=== PATIENT | female | born 1940 | race Hispanic/Latino ===

== ENCOUNTER 2020-11-11 19:43 | Emergency (ER) | payer OTHER ==
--- OUTSIDE RECORDS SUMMARY | 2020-11-11 19:46 | XMS REPORT | Summary of Care ---
:1940 Author Organization [facility] [place] [id number] Care Team Providers Name Role Phone Christiana Dominguez DO Primary Care Provider Reason for Referral Radiology Services (Routine) Status Reason Specialty Diagnoses / Referred By Contact Refe rred To Contact Procedures Pending Radiology Diagnoses Renal mass Ashok Bell MD Ct Imaging Procedures CT ABDOMEN PELVIS W WO CONTRAST [address] [place] [address] [address] [place] [phone] Phone: Fax: Radiology Services (Routine) Status Reason Specialty Diagnoses / Procedures Referred By C anthony Referred To Contact Pending Radiology Diagnoses Renal mass Arminda Miller MD Ct Imaging Procedures CT ABDOMEN PELVIS W WO CONTRAST [address] [address] Phone: Fax: Consult, Test & Treat (Routine) Status Reason Specialty Diagnoses / Referred By Referred To Procedures Contact Contact Pending Consult, Test, Urology Diagnoses Renal mass Arminda Miller MD Mayer, Wesley and Treat Procedures RI OFFICE OUTPATIENT NEW 30 MINUTES MD Pedro [address] [place] [address] Reason for Visit Reason Comments Renal Mass Consult, Test & Treat (Routine) Status Reason Specialty Diagnoses / Referred By Referred To Procedures Contact Contact Patient Responsible Urology Diagnoses black spot on kidney AgliShawn burgess Seth P, Procedures UROLOGY NEW OFFICE VISIT Hue [address] [facility], 10TH [place] [address] B Phone: [place], [place] [phone] Fax: Encounter Details Date Type Department Care Team Description 10/01/2020 [facility] Urology [address] [facility] [address] [place] [address] [address], [place] [address] [place] [address] [phone] Allergies No Known Active Allergiesdocumented as of this encounter (statuses as of 10/01/2020) Medications Medication Sig Dispensed Refills Start Date End Date Status levothyroxine Take 75 mcg 0 06/28/2015 Act adelina (SYNTHROID) 75 MCG by mouth tablet daily. metoprolol Take 50 mg 1 11/03/2018 Active (LOPRESSOR) 50 MG by mouth tablet two times daily. pravastatin Take 40 mg 0 07/26/2018 Active (PRAVACHOL) 40 MG by mouth tablet daily. acetaminophen Take 650 mg 0 Acti ve (TYLENOL 8 HOUR by mouth ARTHRITIS PAIN) 650 every 6 MG CR tablet hours as needed for Pain. Cholecalciferol Take 2,000 0 Act adelina (VITAMIN D3) 2000 Units by units TABS mouth daily. pantoprazole Take 40 mg 0 Active (PROTONIX) 20 MG by mouth. tablet cetirizine,ZYRTEC, 1 tablet 0 A ctive (ZYRTEC ALLERGY) 10 MG tablet amlodipine (NORVASC) 1 tablet 0 10/13/2019 Active 5 MG tablet Aspirin (ASPIRIN 81) 1 tablet 0 Active 81 MG tablet lisinopril 1 tablet 0 07/18/2019 Active (PRINIVIL, ZESTRIL) 40 MG tablet lisinopril Take 40 mg 0 07/25/2018 Discont inued (PRINIVIL, ZESTRIL) by mouth 0 (*Duplicate 40 MG tablet daily. medicat ion) amlodipine (NORVASC) Take 5 mg 0 07/25/2018 10/01/20 2 Discontinued 5 MG tablet by mouth 0 (*Duplic ate daily. medication ) aspirin 81 MG tablet Take 81 mg 0 10/01/20 2 Discontinued by mouth 0 (*Duplicat e daily. medication ) levothyroxine 1 EACH ONCE 0 Disc ontinued (SYNTHROID) 75 MCG A DAY 0 ( *Duplicate tablet ORALLY medication ) pravastatin 1 tablet 0 12/16/2019 Discont inued (PRAVACHOL) 40 MG 0 (* Duplicate tablet medication ) metoprolol 1 tablet 0 08/01/2019 Disconti nued (LOPRESSOR) 50 MG with food 0 (* Duplicate tablet medication ) Cholecalciferol Take by 0 Disc ontinued (VITAMIN D3) 1.25 MG mouth. 0 (*Duplicate (57243 UT) CAPS medi cation) documented as of this encounter (statuses as of 10/01/2020) Active Problems Problem Noted Date Renal mass 10/01/2020 documented as of this encounter (statuses as of 10/01/2020) Social History Tobacco Use Types Packs/Day Years Used Date Never Smoker Smokeless Tobacco: Never Used Alcohol Use Drinks/Week oz/Week Comments No Alcohol Habits Answer Date Recorded How often do you have a drink containing alcohol? Never 12/23/2018 How many drinks containing alcohol do you have on a typical Not asked day when you are drinking? How often do you have six or more drinks on one occasion? No t asked Sex Assigned at Date Recorded Not on file documented as of this encounter Last Filed Vital Signs Vital Sign Reading Time Taken Comments Blood Pressure 159/71 10/01/2020 1:10 PM PATIENT INTAKE REPRESENTATIVE Pulse 82 10/01/2020 1:10 PM PATIENT INTAKE REPRESENTATIVE Temperature - - Respiratory Rate - - Oxygen Saturation - - Inhaled Oxygen Concentration - - Weight 73.9 kg (163 lb) 10/01/2020 1:10 PM PATIENT INTAKE REPRESENTATIVE Height 149.9 cm (4' 11") 10/01/2020 1:10 PM PATIENT INTAKE REPRESENTATIVE Body Mass Index 32.92 10/01/2020 1:10 PM PATIENT INTAKE REPRESENTATIVE documented in this encounter Patient Instructions Patient InstructionsArminda Miller MD - 10/01/2020 1:00 PM CSTPlease get a repeat CT scan in January 2021 and follow up with Dr. Chin Mack for result review. ENT INTAKE REPRESENTATIVE documented in this encounter Progress Notes Joshua Guillory - 10/01/2020 1:16 PM PATIENT INTAKE REPRESENTATIVE HPI Review of Systems Constitutional: Negative. HENT: Negative. Eyes: Negative. Respiratory: Negative. Cardiovascular: Negative. Gastrointestinal: Positive for abdominal pain. Endocrine: Negative. Genitourinary: Negative. Musculoskeletal: Negative. Skin: Negative. Allergic/Immunologic: Negative. Neurological: Negative. Hematological: Negative. Psychiatric/Behavioral: Negative. Physical Exam shok Bell MD - 10/01/2020 1:00 PM CSTThe patient was seen, examined and history reviewed together with the urology resident Dr. Miller. Please refer to his note for additional details which I have reviewed and concur. Additional findings: reviewed CT and has two SRM that do not meet size criteria for intervention Impression: SRM needs active surveillance Discussion with patient/family: d/w pt and daughter Plan: Active surveillance. Refer to Dr. Mack with follow appt January 2021 ([address]) Pre-clinic CT renal protocol Arminda Hinds MD - 10/01/2020 1:00 PM CST Referring Physician Self Referral No address on file Patient Name: Kandace Whitt :1940 [facility] ID#:[id number] Ms. Whitt is a 80 y.o. year old female with pmh of nephrolithiasis, CAD s/p stent, HTN, hypothyrodism, OA who presents for evaluation of renal masses. Patient reports that she has had renal cysts for several years but was recently diagnosed with a renal mass. She reports that her finish inspector referred her to urology for growth of mass. She reports right upper quadrant pain over the last 2-3 years. Worse after activity. Denies history of gross hematuria, weight loss, bone pain. Never smoker. Denies occupational exposures. Worked as a nanny, now retired. Family history of brother with prostate cancer and sister with colon cancer. She has had a history of colon polyps but 2014 polyp was benign. 08/19/20, 01/10/18, 02/12/2016 CT abd/pelvis scans reviewed. There is a small 7mm enhancing right upper pole renal mass since 2016 that has been stable. 2018 scan with a new left anterior/ lateral 10.7mmenhancing renal mass. Increased to 18mm in 2020. There is also a very small subcm left upper pole mass with possible enhancement. She does not have any left sided symptoms. Past Medical History: Diagnosis Date Calculus of kidney Coronary atherosclerosis of unspecified type of vessel, ekw[place] or graft Cystic kidney disease Essential hypertension Heart disease Hypothyroidism Osteoarthrosis, unspecified whether generalized or localized, involving unspecified site Past Surgical History: Procedure Laterality Date ABDOMINAL SURGERY COLON BIOPSY CORONARY STENT PLACEMENT EXTERNAL EAR SURGERY EYE SURGERY HEMORRHOID SURGERY HERNIA REPAIR SHOULDER SURGERY TUMOR REMOVAL Medications Outpatient Medications Prior to Visit Medication Sig Dispense Refill acetaminophen Take 650 mg by mouth every 6 hours as needed for Pain. amlodipine 1 tablet [DISCONTINUED] amlodipine Take 5 mg by mouth daily. Aspirin 1 tablet [DISCONTINUED] aspirin Take 81 mg by mouth daily. cetirizine(ZYRTEC) 1 tablet [DISCONTINUED] Vitamin D3 Take by mouth. Vitamin D3 Take 2,000 Units by mouth daily. [DISCONTINUED] levothyroxine 1 EACH ONCE A DAY ORALLY levothyroxine Take 75 mcg by mouth daily. lisinopril 1 tablet [DISCONTINUED] lisinopril Take 40 mg by mouth daily. [DISCONTINUED] metoprolol 1 tablet with food metoprolol Take 50 mg by mouth two times daily. 1 pantoprazole Take 40 mg by mouth. [DISCONTINUED] pravastatin 1 tablet pravastatin Take 40 mg by mouth daily. No facility-administered medications prior to visit. Current Outpatient Medications: acetaminophen (TYLENOL 8 HOUR ARTHRITIS PAIN) 650 MG CR tablet, Take 650 mg by mouth every 6 hours as needed for Pain., Disp: , Rfl: amlodipine (NORVASC) 5 MG tablet, 1 tablet, Disp: , Rfl: Aspirin (ASPIRIN 81) 81 MG tablet, 1 tablet, Disp: , Rfl: cetirizine,ZYRTEC, (ZYRTEC ALLERGY) 10 MG tablet, 1 tablet, Disp: , Rfl: Cholecalciferol (VITAMIN D3) 2000 units TABS, Take 2,000 Units by mouth daily., Disp: , Rfl: levothyroxine (SYNTHROID) 75 MCG tablet, Take 75 mcg by mouth daily., Disp: , Rfl: lisinopril (PRINIVIL, ZESTRIL) 40 MG tablet, 1 tablet, Disp: , Rfl: metoprolol (LOPRESSOR) 50 MG tablet, Take 50 mg by mouth two times daily., Disp: , Rfl: 1 pantoprazole (PROTONIX) 20 MG tablet, Take 40 mg by mouth., Disp: , Rfl: pravastatin (PRAVACHOL) 40 MG tablet, Take 40 mg by mouth daily., Disp: , Rfl: Social History Socioeconomic History Marital status: Spouse name: Not on file Number of children: Not on file Years of education: Not on file Highest education level: Not on file Occupational History Not on file Tobacco Use Smoking status: Never Smoker Smokeless tobacco: Never Used Substance and Sexual Activity Alcohol use: No Drug use: Not on file Sexual activity: Not on file Other Topics Concerns: Not on file Social History Narrative Not on file Social Determinants of Health Financial Resource Strain: Difficulty of Paying Living Expenses: Not on file Food Insecurity: Worried About Running Out of Food in the Last Year: Not on file Ran Out of Food in the Last Year: Not on file Transportation Needs: Lack of Transportation (Medical): Not on file Lack of Transportation (Non-Medical): Not on file Physical Activity: Days of Exercise per Week: Not on file Minutes of Exercise per Session: Not on file Stress: Feeling of Stress : Not on file Social Connections: Frequency of Communication with Friends and Family: Not on file Frequency of Social Gatherings with Friends and Family: Not on file Attends Anabaptism Services: Not on file Active Member of Clubs or Organizations: Not on file Attends Club or Organization Meetings: Not on file Marital Status: Not on file Intimate Partner Violence: Fear of Current or Ex-Partner: Not on file Emotionally Abused: Not on file Physically Abused: Not on file Sexually Abused: Not on file family history is not on file. No Known Allergies Review of Systems: Review of Systems reviewed with patient as noted in nurse's note. Physical Exam: GENERAL: Well developed, well nourished, in no acute distress HEAD: Normocephalic and atraumatic CHEST Regular respiratory rate CV Regular rate and rhythm ABDOMEN: Soft without masses, Mild RUQ tenderness to palpation BACK: No CVAT EXTREMITIES: No clubbing, cyanosis, edema, or deformity SKIN: Intact without lesions or rashes NEURO: BUENROSTRO well. Patient alert and oriented x3. PSYCH: Alert and cooperative; normal mood and affect; normal attention span and concentration Most Recent Labs: No results found for this or any previous visit (from the past 4032 hour(s)). Most Recent Imaging: No images are attached to the encounter. Assessment: Small renal masses. 1.8cm Left and 7mm right. Plan: Discussed possible benign vs malignant etiology of the tumors. However masses are still quite small and growth rate relatively slow. Recommend continued active surveillance for now. Goal is to avoid any unnecessary treatments with risk of complications. Will refer to Dr. Mack with repeat CT abdomen w/wo contrast in 6 months. Patient and daughter are in agreement with this plan. documented in this encounter Plan of Treatment Date Type Specialty Care Team Description 04/03/2021 Office Visit Urology Chin Mack am, MD [address] [facility] [address] [place], [place] [address] [phone] Name Type Priority Associated Diagnoses Order S chedule CT ABDOMEN PELVIS W WO Imaging Routine Renal mass Expec warner: 02/12/2021, CONTRAST Expires: 2020 CT ABDOMEN PELVIS W WO Imaging Routine Renal mass Expec warner: 04/01/2021, CONTRAST Expires: 2020 Name Type Priority Associated Diagnoses Order S chedule AMB REF TO UROLOGY Outpatient Referral Routine Renal mass Or dered: [facility] 10/01/2020 Health Maintenance Due Date Last Done Comments BMI FOLLOW UP PLAN 1957 ZOSTER VACCINE (1 of 2) 1989 FALL SCREEN 2004 OSTEOPOROSIS SCREENING 2004 PNEUMOVAX >=65 (PPSV23) 2004 MEDICARE AWV (Initial) 11/01/2018 FLU VACCINE > 6 MONTHS 06/01/2020 TETANUS SHOT (ADULT) 03/28/2023 03/28/2013 HPV VACCINE Aged Out No longer eligib le based on patient's age to complete this topic documented as of this encounter Results Not on filedocumented in this encounter Visit Diagnoses Diagnosis Renal mass - Primary Unspecified disorder of kidney and urete r Renal cyst Unspecified congenital cystic kidney dis ease documented in this encounter Insurance Payer Benefit Plan / Subscriber ID Effective Phone Address T ype Group Dates RENAISSANCE IPA [facility] [id number] 2018-Edie [employer]MA[employer] HMO - RNPO PCP nt [id number] [place] [address] documented as of this encounter
--- OUTSIDE RECORDS SUMMARY | 2020-11-11 19:46 | XMS REPORT | Continuity of Care Document ---
:1940 Author Organization [facility] t Address [address] [place] [address] Care Team Providers Name Role Phone Arabella JAEGER P Attending Clinician Macie Palacios Attending Clinician Tico JAEGER Attending Clinician Problems This patient has no known problems. Allergies, Adverse Reactions, Alerts Allergy Allergy Status Severity Reaction(s) Onset Inactive Treating Comm ents Source Name Type Date Date Clinician vioxx Adverse [facility] tachy [facility] ANGIOTEN Adverse Active Info Not [facility] Available [facility] Cephalex Adverse Active Info Not [facility] Reaction Available [facility] Cipro Adverse Active Info Not [facility] Reaction Available [facility] Medications Ordered Filled Start Stop Current Ordering Indication Dosage Frequency Signature Comments Components Source Medication Medication Date Date Medication? Clinician (SIG) Name Name PredniSONE PredniSONE 2020-0 2020- No Na Dominguez [address] [facility] 8 08-17 [facility] Pantoprazol Pantoprazol 2019-0 Yes Na Dominguez [address] [facility] Sodium e Sodium - [facility] 00 [facility] Cetirizine Cetirizine 2020-0 2020- No Na Dominguez [address] [facility] HCl HCl 11-10 [facility] Amlodipine Amlodipine Yes Na Odminguez [address] [facility] Besylate Besylate [facility] Metoprolol Metoprolol Yes Na Dominguez [address] [facility] Tartrate Tartrate with food Livier kes - [facility] Furosemide Furosemide Yes Na Dominguez [address] [facility] Aspir-81 Aspir-81 Yes Na Dominguez [address] [facility] Augmentin Augmentin Yes Na Dominguez [address] [facility] Flonase Flonase Yes Na Dominguez [address] in each [facility] Synthroid Synthroid Yes Na Dominguez [address] [facility] ONCE A DAY [facility] Pravastatin Pravastatin Yes Na Dominguez [address] [facility] [address] Sodium Sodium [facility] Synthroid Synthroid Yes Na Dominguez [address] [facility] on an [facility] empty [facility] stomach in l [facility] Lisinopril Lisinopril Yes Na Dominguez [address] [facility] Colcrys Colcrys Yes Na Dominguez [address] [facility] Neurontin Neurontin Yes Na Dominguez [address] [facility] Yes Na Dominguez [address] [facility] Allergy Allergy [facility] Omeprazole Omeprazole Yes Na Dominguez [address] ONCE A DAY [facility] 90 Memoria DAYS l [facility] Lisinopril Lisinopril Yes Na Dominguez [address] [facility] Immunizations Ordered Filled Immunization Date Status Comments [facility] e Immunization Name Name FluAD FluAD 2019-08-[address] [facility]00 [facility] FluAD FluAD 2018-08-[address] [facility] Procedures This patient has no known procedures. Encounters Start End Encounter Admission Attending Care Care Encounter Source Date/Time Date/Time Type Type Clinicians Facility Department ID 2020-11-06 2020-11-06 Outpatient [facility] [id number] [facility] 2020-10-23 2020-10-[address] [id number] 2020-10-23 2020-10-[address] [facility] [id number] 2020-10-01 2020-10-01 Office ArabellaJOSE graf [id number] 12:05:53 14:25:00 Visit Ashok Horacio AMBULATOR [id number] 2020-09-25 2020-09-25 [facility] [id number] 2020-08-16 2020-08-[facility] [id number] [facility] 2020-08-08 2020-08-[address] [facility] [id number] 2020-08-08 2020-08-08 [id number] 2020-06-07 2020-06-07 [facility] [id number] [address] 11:40:00 11:40:00 t dooub [facility] Family Medicine l Medicine Outpati ent Clinics 2020-06-06 2020-06-06 [facility] [id number] 11:56:00 11:56:[address] [place] [address] [facility] 2020-04-26 2020-04-26 [facility] [id number] 13:40:00 13:40:[address] [facility] 2020-04-20 2020-04-20 Emergency Gabe Zaragoza [facility] [id number] 20:23:10 21:20:00 Macie Perdomo [id number] [place] [id number] [place] [id number] 2020-03-19 2020-03-19 [facility] [id number] 14:20:00 14:20:00 [facility] 2020-03-12 2020-03-12 [facility] [id number] 10:08:00 10:08:[address] [facility] 2019-12-22 2019-12-22 [facility] [id number] 13[facility]38:00 13:38:[address] [facility] 2019-12-19 2019-12-19 [facility] [id number] 00:00:00 00:00:00 Scot Perdomo [id number] [place] [id number] [facility] [id number] [address] 2019-12-11 2019-12-11 [facility] [id number] 00:00:00 00:00:00 Scot Perdomo [id number] [place] [id number] [facility] [id number] [address] 2019-11-10 2019-11-10 [facility] [id number] 11:00:00 11:00:[address] [facility] 2019-11-02 2019-11-02 [facility] [id number] 16:27:00 16:27:00 [place] s - Drive [facility] Family Medicine Medicine Outpati ent Clinics 2019-10-31 2019-10-31 [facility] [id number] 12:07:00 12:07:00 [place] [facility] Medicine Outpati ent Clinics 2019-08-10 2019-08-10 [facility] [id number] 08:40:00 08:40:00 [place] [employer] [facility] - Drive [facility] Medicine Medicine Outpati ent Clinics 2019-08-04 2019-08-04 [facility] [id number] 16:17:00 16:17:00 [place] [employer] [facility] [place] [facility] Medicine Outpati ent Clinics 2019-07-18 2019-07-18 [facility] [id number] 00:00:00 00:00:00 Critical access hospital [id number] [place] [id number] [place] [address] [id number] Primary & 059 Specialty Care 2019-06-16 2019-06-16 [facility] [id number] 14:40:00 14:40:00 [place] [employer] [facility] [place] [facility] Medicine Outpati ent Clinics 2018-11-23 2018-11-23 [facility] [id number] 10:30:00 10:30:00 [place] [employer] [facility] [place] [facility] Medicine Medicine Outpati ent Clinics 2018-11-11 2018-11-11 [facility] [id number] 08:45:00 08:45:00 [place] [employer] s - [address] [facility] Medicine Medicine Outpati ent Clinics 2018-08-05 2018-08-05 [facility] [id number] 10:45:00 10:45:00 [place] [employer] [place] - Drive [facility] Medicine Medicine Outpati ent Clinics 2018-06-24 2018-06-24 [facility] [id number] 11:00:00 11:00:[address] [place] [address] Luke s - Drive [facility] 2018-05-02 2018-05-02 [facility] [place] [id number] 10:19:00 10:19:00 t dooub [facility] 2018-04-08 2018-04-08 [facility] [place] [id number] 09:00:00 09:00:00 [facility] ent Clinics Results This patient has no known results.
--- OUTSIDE RECORDS SUMMARY | 2020-11-11 19:46 | XMS REPORT ---
:1940 Author Organization [facility] Address [address], [address] [place] [address] Care Team Providers Name Role Phone Dominguez Unavailable [phone] PROBLEMS Type Condition ICD9-CM [id number] Onset Condition SNOMED Code Notes Code Code Dates Status Problem Hypertension I10 Active 25760836 Problem Kidney problem N28.9 Active 385095288 Problem Pollen allergies J30.1 Active 70305695 Problem Hyperlipidemia E78.5 Active 40436725 Problem Osteopenia M85.80 Active 466869399 Problem Family history Z83.3 Active 570422925 of diabetes mellitus Problem Hypothyroidism E03.9 Active 01923518 Problem Simple renal N28.1 Active 64399391 cyst Problem Anemia D64.9 Active 700610975 Problem Screening for Z12.31 Active 376344659 breast cancer Problem Pseudogout M11.20 Active 267351565 Problem Varicose veins I83.893 Active 13876854 of both legs with edema Problem Acute gout of M10.9 Active 287732247 resolvin g left ankle, unspecified cause Problem Osteoporosis Z13.820 Active 228061908 screening Problem GERD without K21.9 Active 658325271 esophagitis Problem Osteoarthritis M15.9 Active 016214023 of multiple joints, unspecified osteoarthritis type Problem Palpitations R00.2 Active 63279115 Problem Cat allergies J30.81 Active 890362183599922 Problem Other M15.8 Active 472711581 osteoarthritis involving multiple joints Problem Varicose veins I83.812 Active 97301147 of left lower extremity with pain Problem Adult general Z00.00 Active 511304698 medical exam Problem 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 Active 080526941 l reflux disease without esophagitis Problem Diabetes E11.9 Active 280112900 mellitus type 2, diet-controlled ALLERGIES Allergen (clinical drug Drug/Non Drug Allergy Reaction Allergy Type Onset Date Status ingredient) documented on EMR ANGIOTENSION RENIN Unknown Drug Allergy Acti ve OTIS vioxx tachy Drug Allergy Active ciprofloxacin Cipro([facility][NOTE 3] Unknown Drug Allergy Active Code:[address]-42) cephalexin Cephalexin([facility][NOTE 3] Unknown Drug Allergy Active Code:[address]-52) ENCOUNTERS from 1940 to 2020-08-16 Encounter Location Date Provider Diagnosis [facility] [address] [facility] [address] [facility] [address] Aug, 2020 [place] [address] IMMUNIZATIONS Vaccine Route Administration Date Status FluAD IM Intramuscular Aug 08, 2020 Administered FluAD IM Intramuscular Aug 10, 2019 Administered FluAD IM Intramuscular Aug 05, 2018 Administered SOCIAL HISTORY Tobacco Use: Social History Observation Description Date Details (start date - stop date) Never Smoker Sex Assigned At : Social History Observation Description Sex Assigned At Unknown PHQ9 Question Answer Notes Little interest or pleasure in doing things Not at all Feeling down, depressed, or hopeless Not at all Trouble falling or staying asleep or sleeping too much Sever al days Feeling tired or having little energy Not at all Poor appetite or overeating Not at all Feeling bad about yourself, or that you are a failure, or No t at all have let yourself or your family down Trouble concentrating on things, such as reading the Not at all newspaper or watching television Moving or speaking so slowly that other people could have No t at all noticed; or the opposite, being so fidgety or restless that you have been moving around a lot more than usual Total Score 1 Interpretation Minimal Depression Thoughts that you would be better off or of hurting Not at all yourself in some way Alcohol Screen Question Answer Notes Did you have a drink containing alcohol in the past year? No Points 0 Interpretation Negative Tobacco Use/Smoking Question Answer Notes Are you a never smoker REASON FOR REFERRAL No Information VITAL SIGNS No information MEDICATIONS Medication SIG (Take, Route, Start Date End Date Status Frequency, Duration) Lisinopril 40 MG 1 tablet Orally Once a A ctive day Metoprolol Tartrate 50 MG TAKE 1 TABLET BY MOUTH Active TWICE DAILY WITH FOOD for 90 Omeprazole 40 mg 1 CAPSULE ONCE A DAY Act adelina ORALLY 90 DAYS for 90 Furosemide 40 MG 1 tablet Orally Once a A ctive day x 3 days prn swelling for 30 day(s) Meclizine HCl 25 MG 1 tablet as needed Aug, Ac tive Orally twice a day prn dizziness for 10 days Metoprolol Tartrate 50 MG 1 tablet with food Active Orally Twice a day Augmentin 500-125 MG 1 tablet Orally every 12 Unknown hrs PredniSONE 10 MG 1 tablet Orally Once a U nknown day Amlodipine Besylate 5 MG 1 tablet Orally Once a Active day for 90 days Aspir-81 81 MG 1 tablet Orally Once a Unk nown day Neurontin 100 MG 1 capsule Orally Three U nknown times a day Pravastatin Sodium 40 MG 1 tablet Orally Once a Active day for 90 day(s) Zyrtec Allergy 10 MG 1 tablet Orally Once a Unknown day Colcrys 0.6 MG 1 tablet Orally four Unkno wn times a day Synthroid 75 MCG 1 EACH ONCE A DAY ORALLY Not-Taking for 90 Flonase 50 MCG/ACT 1 spray in each nostril Unknown Nasally Once a day Levothyroxine Sodium 75 MCG TAKE 1 TABLET BY MOUTH Active EVERY DAY IN THE MORNING ON AN EMPTY STOMACH for 90 Flonase 50 MCG/ACT 2 sprays in each nostril Unknown Nasally Once a day for 30 day(s) Pravastatin Sodium 40 1 tablet Orally Once a Unknown day for 90 Cetirizine HCl 10 MG 1 tablet Orally Once a Active day for 90 day(s) Synthroid 75 MCG 1 tablet on an empty Act adelina stomach in the morning Orally Once a day for 90 days Lisinopril 40 MG TAKE 1 TABLET BY MOUTH A ctive EVERY DAY for 90 Amlodipine Besylate 5 MG TAKE 1 TABLET BY MOUTH Active EVERY DAY for 90 Pantoprazole Sodium 40 MG TAKE 1 TABLET BY MOUTH Active EVERY DAY for 90 Pantoprazole Sodium 40 MG 1 tablet Orally Once a Active day for 90 day(s) PROCEDURES No Information RESULTS No Results REASON FOR VISIT vertigo / headache MEDICAL (GENERAL) HISTORY Type Description Date Medical History Kidney problem Medical History Simple renal cyst Medical History Hypertension Medical History Hyperlipidemia Medical History Hypothyroidism Medical History Anemia Medical History GERD without esophagitis Medical History Palpitations Medical History Family history of diabetes mellitus Medical History Osteopenia Surgical History ear Surgical History breast mole removed Surgical History tumor removed in ovary surgery Surgical History cholecystectomy Surgical History appendectomy Surgical History biopsy Surgical History rotator cuff Surgical History radiation treatment Surgical History side surgery on head, tumor between skul l and brain Surgical History spinal drain Surgical History colonoscopy 2015 [place] No Information Health Concerns No Information MEDICAL EQUIPMENT No Information MENTAL STATUS No Information FUNCTIONAL STATUS No Information ASSESSMENTS No Information PLAN OF TREATMENT Medication Medication Name Sig Start Date Stop Date Synthroid 75 MCG 1 tablet on an empty stomach in the morning Orally Once a day for 90 days Pantoprazole Sodium 40 MG 1 tablet Orally Once a day for 90 day(s) Amlodipine Besylate 5 MG 1 tablet Orally Once a day for 90 days Cetirizine HCl 10 MG 1 tablet Orally Once a day for 90 day(s) Lisinopril 40 MG 1 tablet Orally Once a day Pravastatin Sodium 40 MG 1 tablet Orally Once a day for 90 day(s) Meclizine HCl 25 MG 1 tablet as needed Orally twice a 16 Aug, 20 20 day prn dizziness for 10 days Metoprolol Tartrate 50 MG 1 tablet with food Orally Twice a day Next Appt Details Provider Name:Christiana Dominguez, 2020-11-06 09:0 0:00 AM, [address], [address], [place], [address], Provider Name:Christiana Dominguez 2020-11-12 01:2 0:00 PM, [address], [address], [place], [address], Insurance Providers Payer Name Payer Payer Insured Patient Coverage Coverage End Address Phone Name Relationship to Start Date Raj e Insured [employer] [phone] [place] [facility] [id number] [place] Replace [phone]
--- OUTSIDE RECORDS SUMMARY | 2020-11-11 19:46 | XMS REPORT ---
:1940 Author Organization [facility] Address [address], [address] [place] [address] Care Team Providers Name Role Phone Dominguez Unavailable [phone] PROBLEMS Type Condition ICD9-CM [id number] Onset Condition SNOMED Code Notes Code Code Dates Status Problem Hypertension I10 Active 66941054 Problem Kidney problem N28.9 Active 859349668 Problem Pollen allergies J30.1 Active 74171236 Problem Hyperlipidemia E78.5 Active 33769484 Problem Osteopenia M85.80 Active 409946372 Problem Family history Z83.3 Active 854831174 of diabetes mellitus Problem Hypothyroidism E03.9 Active 50519407 Problem Simple renal N28.1 Active 72228738 cyst Problem Anemia D64.9 Active 786135783 Problem Screening for Z12.31 Active 915653428 breast cancer Problem Pseudogout M11.20 Active 762164568 Problem Varicose veins I83.893 Active 51715839 of both legs with edema Problem Acute gout of M10.9 Active 021506948 resolvin g left ankle, unspecified cause Problem Osteoporosis Z13.820 Active 540972691 screening Problem GERD without K21.9 Active 006569396 esophagitis Problem Osteoarthritis M15.9 Active 461441916 of multiple joints, unspecified osteoarthritis type Problem Palpitations R00.2 Active 86119427 Problem Cat allergies J30.81 Active 070569423732831 Problem Other M15.8 Active 429522566 osteoarthritis involving multiple joints Problem Varicose veins I83.812 Active 18596469 of left lower extremity with pain Problem Adult general Z00.00 Active 305813126 medical exam Problem 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 Active 593767802 l reflux disease without esophagitis Problem Diabetes E11.9 Active 630128798 mellitus type 2, diet-controlled ALLERGIES Allergen (clinical drug Drug/Non Drug Allergy Reaction Allergy Type Onset Date Status ingredient) documented on EMR ANGIOTENSION RENIN Unknown Drug Allergy Acti ve OTIS vioxx tachy Drug Allergy Active ciprofloxacin Cipro([facility] Unknown Drug Allergy Active Code:[address]-46) cephalexin Cephalexin([facility] Unknown Drug Allergy Active Code:[address]-26) ENCOUNTERS from 1940 to 2020-09-25 Encounter Location Date Provider Diagnosis [facility] [address] [facility] [address], Na Dominguez Maria E phragmatic hernia [facility] [address], [place] [address] gangrene K44.9 IMMUNIZATIONS Vaccine Route Administration Date Status FluAD [...] No information MEDICATIONS Medication SIG (Take, Route, Notes Start Date End Date Status Frequency, Duration) Lisinopril 40 MG 1 tablet Orally Once Active a day Metoprolol Tartrate 50 MG TAKE 1 TABLET BY Active MOUTH TWICE DAILY WITH FOOD for 90 Omeprazole 40 mg 1 CAPSULE ONCE A DAY Active ORALLY 90 DAYS for 90 Furosemide 40 MG 1 tablet Orally Once Active a day x 3 days prn swelling for 30 day(s) Pantoprazole Sodium 40 MG 1 tablet Orally Once Active a day for 90 day(s) Metoprolol Tartrate 50 MG 1 tablet with food Active Orally Twice a day Augmentin 500-125 MG 1 tablet Orally every Unknown 12 hrs Meclizine HCl 25 MG 1 tablet as needed Aug, Active Orally twice a day prn dizziness for 10 days Amlodipine Besylate 5 MG 1 tablet Orally Once Active a day for 90 days Aspir-81 81 MG 1 tablet Orally Once Unknown a day Neurontin 100 MG 1 capsule Orally Un known Three times a day Pravastatin Sodium 40 MG 1 tablet Orally Once Active a day for 90 day(s) Flonase 50 MCG/ACT 1 spray in each U nknown nostril Nasally Once a day Colcrys 0.6 MG 1 tablet Orally four Unknown times a day Synthroid 75 MCG 1 EACH ONCE A DAY N ot-Taking ORALLY for PredniSONE 10 MG 1 tablet Orally Once Unknown a day Zyrtec Allergy 10 MG 1 tablet Orally Once Unknown a day Flonase 50 MCG/ACT 2 sprays in each Unknown nostril Nasally Once a day for 30 day(s) Pravastatin Sodium 40 1 tablet Orally Once Unknown a day for 90 Cetirizine HCl 10 MG 1 tablet Orally Once Active a day for 90 day(s) Synthroid 75 MCG 1 tablet on an empty Active stomach in the morning Orally Once a day for 90 days Lisinopril 40 MG TAKE 1 TABLET BY Ac tive MOUTH EVERY DAY for 90 Amlodipine Besylate 5 MG TAKE 1 TABLET BY Active MOUTH EVERY DAY for 90 Pantoprazole Sodium 40 MG TAKE 1 TABLET BY Active MOUTH EVERY DAY for 90 Levothyroxine Sodium 75 TAKE 1 TABLET BY Active MCG MOUTH EVERY DAY IN THE MORNING ON AN EMPTY STOMACH for 90 PROCEDURES No Information RESULTS No Results REASON FOR VISIT refill MEDICAL (GENERAL) HISTORY Type Description Date Medical [...] Surgical History spinal drain Surgical History colonoscopy 2014 [place] No Information Health Concerns No Information MEDICAL EQUIPMENT No Information MENTAL STATUS No Information FUNCTIONAL STATUS No Information ASSESSMENTS Encounter Date Diagnosis Assessment Notes Treatment Notes Treatm ent Clinical Notes Sep, Diaphragmatic hernia without obstruction or gangrene (ICD-10 - K44.9) PLAN OF TREATMENT Medication Medication Name Sig Start Date Stop Date Synthroid 75 MCG 1 tablet on an empty stomach in the morning Orally Once a day for 90 days Levothyroxine Sodium 75 MCG TAKE 1 TABLET BY MOUTH EVERY DAY IN THE MORNING ON AN EMPTY STOMACH for 90 Amlodipine Besylate 5 MG 1 tablet Orally Once a day for 90 days Cetirizine HCl 10 MG 1 tablet Orally Once a day for 90 day(s) Meclizine HCl 25 MG 1 tablet as needed Orally twice a 16 Aug, day prn dizziness for 10 days Lisinopril 40 MG 1 tablet Orally Once a day Pravastatin Sodium 40 MG 1 tablet Orally Once a day for 90 day(s) Pantoprazole Sodium 40 MG 1 tablet Orally Once a day for 90 day(s) Metoprolol Tartrate 50 MG 1 tablet with food Orally Twice a day Next Appt Details Provider Name:Christiana Dominguez, 2020-11-06 09:0 0:00 AM, [address], [address], [place], [address], Provider Name:Christiana Dominguez, 2020-11-12 01:2 0:00 PM, [address], [place], [address], Insurance Providers Payer Name Payer Payer Insured Patient Coverage Coverage End Address Phone Name Relationship to Start Date Raj e Insured [facility] [phone] [place] self [address] [facility] [id number] [place] Replace [phone]
--- OUTSIDE RECORDS SUMMARY | 2020-11-11 19:47 | XMS REPORT ---
:1940 Author Organization [facility] Address [address], [address] [place] [address] Care Team Providers Name Role Phone Dominguez Unavailable [phone] PROBLEMS Type Condition ICD9-CM [id number] Onset Condition SNOMED Code Notes Code Code Dates Status Problem Hypertension I10 Active 26246812 Problem Kidney problem N28.9 Active 057384532 Problem Pollen allergies J30.1 Active 30449177 Problem Hyperlipidemia E78.5 Active 80712370 Problem Osteopenia M85.80 Active 840104894 Problem Family history Z83.3 Active 492517446 of diabetes mellitus Problem Hypothyroidism E03.9 Active 71744704 Problem Simple renal N28.1 Active 59549290 cyst Problem Anemia D64.9 Active 359385919 Problem Screening for Z12.31 Active 451029975 breast cancer Problem Pseudogout M11.20 Active 483809037 Problem Varicose veins I83.893 Active 13462943 of both legs with edema Problem Acute gout of M10.9 Active 770444323 resolvin g left ankle, unspecified cause Problem Osteoporosis Z13.820 Active 069722709 screening Problem GERD without K21.9 Active 444311185 esophagitis Problem Osteoarthritis M15.9 Active 084791463 of multiple joints, unspecified osteoarthritis type Problem Palpitations R00.2 Active 55294605 Problem Cat allergies J30.81 Active 774456462742326 Problem Other M15.8 Active 008601460 osteoarthritis involving multiple joints Problem Varicose veins I83.812 Active 78979531 of left lower extremity with pain Problem Adult general Z00.00 Active 574175762 medical exam Problem 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 Active 182712352 l reflux disease without esophagitis Problem Diabetes E11.9 Active 461973746 mellitus type 2, diet-controlled ALLERGIES Allergen (clinical drug Drug/Non Drug Allergy Reaction Allergy Type Onset Date Status ingredient) documented on EMR ANGIOTENSION RENIN Unknown Drug Allergy Acti ve OTIS vioxx tachy Drug Allergy Active ciprofloxacin Cipro([place] Unknown Drug Allergy Active Code:[address]-86) cephalexin Cephalexin([place] Unknown Drug Allergy Active Code:[address]-76) ENCOUNTERS from 1940 to 2020-10-23 Encounter Location Date Provider Diagnosis [facility] [address] [facility] [address] Oct, Na Alberto Hypertension [address] [place] [address] IMMUNIZATIONS Vaccine Route Administration Date Status FluAD [...] Start Date End Date Status Frequency, Duration) Omeprazole 40 mg 1 CAPSULE ONCE A DAY Active ORALLY 90 DAYS for 90 Metoprolol Tartrate 50 MG TAKE 1 TABLET BY Active MOUTH TWICE DAILY WITH FOOD for 90 Pravastatin Sodium 40 1 tablet Orally Once Unknown a day for 90 Furosemide 40 MG 1 tablet Orally Once Active a day x 3 days prn swelling for 30 day(s) Pantoprazole Sodium 40 MG 1 tablet Orally Once Active a day for 90 day(s) Lisinopril 40 MG 1 tablet Orally Once Active a day Augmentin 500-125 MG 1 tablet Orally every Unknown 12 hrs Meclizine HCl 25 MG 1 tablet as needed Aug, Active Orally twice a day prn dizziness for 10 days Cetirizine HCl 10 MG 1 tablet Orally Once Active a day for 90 day(s) Colcrys 0.6 MG 1 tablet Orally four Unknown times a day Metoprolol Tartrate 50 MG 1 tablet with food Active Orally Twice a day for 90 days Synthroid 75 MCG 1 EACH ONCE A DAY N ot-Taking ORALLY for 90 Flonase 50 MCG/ACT 1 spray in each U nknown nostril Nasally Once a day Neurontin 100 MG 1 capsule Orally Un known Three times a day Aspir-81 81 MG 1 tablet Orally Once Unknown a day PredniSONE 10 MG 1 tablet Orally Once Unknown a day Zyrtec Allergy 10 MG 1 tablet Orally Once Unknown a day Synthroid 75 MCG 1 tablet on an empty Active stomach in the morning Orally Once a day for 90 days Pravastatin Sodium 40 MG 1 tablet Orally Once Active a day for 90 day(s) Flonase 50 MCG/ACT 2 sprays in each Unknown nostril Nasally Once a day for 30 day(s) Amlodipine Besylate 5 MG 1 tablet Orally Once Active a day for 90 days Lisinopril 40 [...] Information RESULTS No Results REASON FOR VISIT med refill. MEDICAL (GENERAL) HISTORY Type Description Date Medical [...] Notes Treatment Notes Treatm ent Clinical Notes Oct, Hypertension (ICD-10 - I10) PLAN OF TREATMENT Medication Medication Name Sig Start Date Stop Date Amlodipine Besylate 5 MG 1 tablet Orally Once a day for 90 days Levothyroxine Sodium 75 MCG TAKE 1 TABLET BY MOUTH EVERY DAY IN THE MORNING ON AN EMPTY STOMACH for 90 Synthroid 75 MCG 1 tablet on an empty stomach in the morning Orally Once a day for 90 days Metoprolol Tartrate 50 MG 1 tablet with food Orally Twice a day for 90 days Meclizine HCl 25 MG 1 tablet as needed Orally twice a 16 Aug, day prn dizziness for 10 days Pravastatin Sodium 40 MG 1 tablet Orally Once a day for 90 day(s) Cetirizine HCl 10 MG 1 tablet Orally Once a day for 90 day(s) Pantoprazole Sodium 40 MG 1 tablet Orally Once a day for 90 day(s) Lisinopril 40 MG 1 tablet Orally Once a day Next Appt Details Provider Name:Christiana Dominguez, 2020-11-06 09:0 0:00 AM, [address], [place], [address], Provider Name:Christiana Dominguez, 2020-11-12 01:2 0:00 PM, [address], [place], [address], Insurance Providers Payer Name Payer Payer Insured Patient Coverage Coverage End Address Phone Name Relationship to Start Date Raj e Insured [employer] [phone] [place] self [address] [facility] [id number] [place] Replace [phone]
--- OUTSIDE RECORDS SUMMARY | 2020-11-11 19:47 | XMS REPORT ---
:1940 Author Organization [facility] Address [address], [address] [place] [address] Care Team Providers Name Role Phone Dominguez Unavailable [phone] PROBLEMS Type Condition ICD9-CM NGL29-BL Onset Condition SNOMED Code Notes Code Code Dates Status Problem Hypertension I10 Active 32000297 Problem Kidney problem N28.9 Active 316132554 Problem Pollen allergies J30.1 Active 94443888 Problem Hyperlipidemia E78.5 Active 05172680 Problem Osteopenia M85.80 Active 903234329 Problem Family history Z83.3 Active 134300491 of diabetes mellitus Problem Hypothyroidism E03.9 Active 44251831 Problem Simple renal N28.1 Active 15250065 cyst Problem Anemia D64.9 Active 141405124 Problem Screening for Z12.31 Active 534743439 breast cancer Problem Pseudogout M11.20 Active 007473663 Problem Varicose veins I83.893 Active 01164234 of both legs with edema Problem Acute gout of M10.9 Active 024533808 resolvin g left ankle, unspecified cause Problem Osteoporosis Z13.820 Active 398024241 screening Problem GERD without K21.9 Active 681996634 esophagitis Problem Osteoarthritis M15.9 Active 359376662 of multiple joints, unspecified osteoarthritis type Problem Palpitations R00.2 Active 05543320 Problem Cat allergies J30.81 Active 236245126719386 Problem Other M15.8 Active 505684588 osteoarthritis involving multiple joints Problem Varicose veins I83.812 Active 78110174 of left lower extremity with pain Problem Adult general Z00.00 Active 362236861 medical exam Problem 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 Active 471447720 l reflux disease without esophagitis Problem Diabetes E11.9 Active 325583735 mellitus type 2, diet-controlled ALLERGIES Allergen (clinical drug Drug/Non Drug Allergy Reaction Allergy Type Onset Date Status ingredient) documented on EMR ANGIOTENSION RENIN Unknown Drug Allergy Acti ve OTIS vioxx tachy Drug Allergy Active ciprofloxacin Cipro([place] Unknown Drug Allergy Active Code:[address]-56) cephalexin Cephalexin([place] Unknown Drug Allergy Active Code:[address]-44) ENCOUNTERS from 1940 to 2020-10-23 Encounter Location Date Provider Diagnosis [facility] [address] [facility] Oct, Na Alberto Hypertension [address] [place] [address] IMMUNIZATIONS Vaccine Route Administration Date Status FluAD [...] RESULTS No Results REASON FOR VISIT med refill MEDICAL (GENERAL) HISTORY Type Description Date [...] 0:00 AM, [address], [place], [address], Provider Name:Christiana Dominguez, 2020-11-12 01:2 0:00 PM, [address], [place], [address], Insurance Providers Payer Name Payer Payer Insured Patient Coverage Coverage End Address Phone Name Relationship to Start Date Raj e Insured [employer] [phone] [place] self [address] [facility] [id number] [phone] [place] Replace [phone]
--- OUTSIDE RECORDS SUMMARY | 2020-11-11 19:47 | XMS REPORT ---
:1940 Author Organization [facility] Address [address] [place], [address] [place] [address] Care Team Providers Name Role Phone Dominguez Unavailable [phone] PROBLEMS Type Condition ICD9-CM HAO64-GI Onset Condition SNOMED Code Notes Code Code Dates Status Problem Hypertension I10 Active 32602531 Problem Kidney problem N28.9 Active 599838369 Problem Pollen allergies J30.1 Active 03451211 Problem Hyperlipidemia E78.5 Active 45917653 Problem Osteopenia M85.80 Active 259303868 Problem Family history Z83.3 Active 330384406 of diabetes mellitus Problem Hypothyroidism E03.9 Active 43162714 Problem Simple renal N28.1 Active 09067113 cyst Problem Anemia D64.9 Active 768267017 Problem Screening for Z12.31 Active 252923221 breast cancer Problem Pseudogout M11.20 Active 616084601 Problem Varicose veins I83.893 Active 06883927 of both legs with edema Problem Acute gout of M10.9 Active 263596260 resolvin g left ankle, unspecified cause Problem Osteoporosis Z13.820 Active 384522980 screening Problem GERD without K21.9 Active 933443832 esophagitis Problem Osteoarthritis M15.9 Active 090975843 of multiple joints, unspecified osteoarthritis type Problem Palpitations R00.2 Active 61629349 Problem Cat allergies J30.81 Active [id number] Problem Other M15.8 Active 782138064 osteoarthritis involving multiple joints Problem Varicose veins I83.812 Active 42921309 of left lower extremity with pain Problem Adult general Z00.00 Active 694262473 medical exam Problem 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 Active 611574885 l reflux disease without esophagitis Problem Diabetes E11.9 Active 007179550 mellitus type 2, diet-controlled ALLERGIES Allergen (clinical drug Drug/Non Drug Allergy Reaction Allergy Type Onset Date Status ingredient) documented on EMR ANGIOTENSION RENIN Unknown Drug Allergy Acti ve OTIS vioxx tachy Drug Allergy Active ciprofloxacin Cipro(ND Unknown Drug Allergy Active Code:[address]-22) cephalexin Cephalexin(ND Unknown Drug Allergy Active Code:[address]-58) ENCOUNTERS from 1940 to 2020-11-08 Encounter [facility] Date Provider [facility] [address] [facility] [address], [place] [address] IMMUNIZATIONS Vaccine Route Administration Date Status FluAD [...] Start Date End Date Status Frequency, Duration) Colcrys 0.6 MG 1 tablet Orally four Unknown times a day Omeprazole 40 mg 1 CAPSULE ONCE A DAY Active ORALLY 90 DAYS for 90 Furosemide 40 MG 1 tablet Orally Once Active a day x 3 days prn swelling for 30 day(s) Pravastatin Sodium 40 1 tablet Orally Once Unknown a day for 90 Aspir-81 81 MG 1 tablet Orally Once Unknown a day Amlodipine Besylate 5 MG TAKE 1 TABLET BY Active MOUTH EVERY DAY for 90 Cetirizine HCl 10 MG 1 tablet Orally Once Active a day for 90 day(s) PredniSONE 10 MG 1 tablet Orally Once Unknown a day Metoprolol Tartrate 50 MG TAKE 1 TABLET BY Active MOUTH TWICE DAILY WITH FOOD for 90 Levothyroxine Sodium 75 TAKE 1 TABLET BY Active MCG MOUTH EVERY DAY IN THE MORNING ON AN EMPTY STOMACH for 90 Meclizine HCl 25 MG 1 tablet as needed Aug, Active Orally twice a day prn dizziness for 10 days Pantoprazole Sodium 40 MG 1 tablet Orally Once Active a day for 90 day(s) Metoprolol Tartrate 50 MG 1 tablet with food Active Orally Twice a day for 90 days Amlodipine Besylate 5 MG 1 tablet Orally Once Active a day for 90 days Pantoprazole Sodium 40 MG TAKE 1 TABLET BY Active MOUTH EVERY DAY for 90 Neurontin 100 MG 1 capsule Orally Un known Three times a day Pravastatin Sodium 40 MG 1 tablet Orally Once Active a day for 90 day(s) Zyrtec Allergy 10 MG 1 tablet Orally Once Unknown a day Synthroid 75 MCG 1 tablet on an empty Active stomach in the morning Orally Once a day for 90 days Synthroid 75 MCG 1 EACH ONCE A DAY N ot-Taking ORALLY for 90 Augmentin 500-125 MG 1 tablet Orally every Unknown 12 hrs Lisinopril 40 MG TAKE 1 TABLET BY Ac tive MOUTH EVERY DAY for 90 Flonase 50 MCG/ACT 1 spray in each U nknown nostril Nasally Once a day Flonase 50 MCG/ACT 2 sprays in each Unknown nostril Nasally Once a day for 30 day(s) PROCEDURES No Information RESULTS No Results REASON FOR VISIT ear pain/vertigo MEDICAL (GENERAL) HISTORY Type Description Date Medical [...] Medication Name Sig Start Date Stop Date Pantoprazole Sodium 40 MG 1 tablet Orally Once a day for 90 day(s) Lisinopril 40 MG TAKE 1 TABLET BY MOUTH EVERY DAY for 90 Meclizine HCl 25 MG 1 tablet as needed Orally twice a 16 Oct, 20 20 day prn dizziness for 10 days Levothyroxine Sodium 75 MCG TAKE 1 TABLET BY MOUTH EVERY DAY IN THE MORNING ON AN EMPTY STOMACH for 90 Pravastatin Sodium 40 MG 1 tablet Orally Once a day for 90 day(s) Metoprolol Tartrate 50 MG 1 tablet with food Orally Twice a day for 90 days Amlodipine Besylate 5 MG 1 tablet Orally Once a day for 90 days Cetirizine HCl 10 MG 1 tablet Orally Once a day for 90 day(s) Synthroid 75 MCG 1 tablet on an empty stomach in the morning Orally Once a day for 90 days Next Appt Details Provider Name:Christiana Dominguez, 2020-11-12 01:2 0:00 PM, [address], [place], [address], Insurance Providers Payer Name Payer Payer Insured Patient Coverage Coverage End Address Phone Name Relationship to Start Date Raj e Insured [employer] [phone] [place] self 2019 [id number] [place] Replace [id number]
--- NOTE | 2020-11-11 21:14 | RAD REPORT ---
EXAM DESCRIPTION: US - Extremity Venous Uni Ltd - 11/11/2020 9:08 pm CLINICAL HISTORY: Pain;Swelling Leg swelling and edema. COMPARISON: No comparisons FINDINGS: Left lower extremity venous system was interrogated with Doppler technique. Normal flow, c ompressibility and augmentation was noted. There is no DVT present. IMPRESSION: No evidence of left lower extremity deep venous thrombosis.
[2020-11-11 21:16] LABS: Absolute Lymphocytes (CBC) 3.4 K/uL (0.7-4.9); Basophils % 0.7 % (0-1.3); Hematocrit 40.7 % (36.0-45.0); Lymphocytes % 22.9 % (15.3-44.8); MPV 8.4 fL (7.6-11.3); RBC Red Blood Cell Count 4.69 M/uL (3.86-4.86)
[2020-11-11 21:32] LABS: Potassium 3.6 mmol/L (3.5-5.1); Uric Acid 5.1 mg/dL (2.6-6.0)
[2020-11-11] MEDS ORDERED: predniSONE 20 MG TAB ONE (21:34)
[2020-11-11] MEDS ORDERED: COLCHICINE 0.6 MG TAB ONE (21:35)
--- NOTE | 2020-11-11 21:44 | ER ---
Nurse's Notes [facility] Name: Kandace Whitt Age: 80 yrs Sex: Female : 1940 Arrival Date: 11/11/2020 Time: 19:46 Bed 7 Private MD: Diagnosis: Cellulitis left leg. Possible gout Presentation: 11/11 20:00 Chief complaint: Patient states: L knee pain and swelling since yesterday. States she ll1 believes its her gout flare-up again. No fever. No trauma. Coronavirus screen: Client denies travel out of the [place] in the last 14 days. At this time, the client does not indicate any symptoms associated with coronavirus-19. Ebola Screen: Patient denies travel to an Ebola-affected area in the 21 days before illness onset. Initial Sepsis Screen: Does the patient meet any 2 criteria? HR > 90 bpm. No. Patient's initial sepsis screen is negative. Does the patient have a suspected source of infection? Yes: Bone or joint infection. Risk Assessment: Do you want to hurt yourself or someone else? Patient reports no desire to harm self or others. Onset of symptoms was November 10, 2020. 20:00 Method Of Arrival: Wheelchair ll1 20:00 Acuity: PAWEL 4 ll1 Historical: - Allergies: 19:58 BACLOFEN; ll1 19:58 Bextra; ll1 19:58 Cephalexin; ll1 19:58 Ciprofloxacin; ll1 19:58 CYCLOBENZAPRINE; ll1 19:58 diclofenac; ll1 19:58 Tramadol HCl; ll1 19:58 Vasotec; ll1 19:58 Vioxx; ll1 - PMHx: 19:58 Hypertension; Hypothyroidism; High Cholesterol; Gout; kidney CA; Myocardial infarction; ll1 diverticulosis; - PSHx: 19:58 ovarian tumor removed; Cholecystectomy; Appendectomy; Hernia repair; cataract repair; ll1 rotator cuff sx; - Immunization history:: Flu vaccine is up to date. - Social history:: Smoking status: Patient denies any tobacco usage or history of. Screenin:18 Abuse screen: Denies threats or abuse. Denies injuries from another. Nutritional sg screening: No deficits noted. Tuberculosis screening: No symptoms or risk factors identified. Never had TB. Fall Risk None identified. Assessment: 20:18 Reassessment: at bedside at this time for assessment, awaiting orders. sg 20:37 Reassessment: US at bedside at this time. sg 21:06 Reassessment: pt requesting we update her Daughter, Ivy. Informed that will speak sg with Ivy when results are posted, pt stated understanding. 21:12 Reassessment: Dr. Alfredo at bedside re evaluating pt and updating pt on POC and dispo. sg 21:24 Reassessment: pt refusing PO medications at this time, pt states I dont want to take sg those because Im feeling better. pt educated on effects of medication and to prevent pain from occurring later, pt stated understanding but continues to refuse medications. notified pt stated feeling better and does not want medications. Vital Signs: 20:00 BP 177 / 82; Pulse 105; Resp 18; Temp 98.2; Pulse Ox 98% ; Weight 73.94 kg; Height 4 ll1 ft. 11 in. (149.86 cm); Pain 10/10; 21:22 BP 169 / 77; Pulse 91; Resp 17; Pulse Ox 100% on R/A; sg 20:00 Body Mass Index 32.92 (73.94 kg, 149.86 cm) ll1 ED Course: 19:46 Patient arrived in ED. cf2 19:55 Arm band placed on. ll1 20:02 Triage completed. ll1 20:11 Rory Alfredo MD is Attending Physician. pkl 20:15 Aldair Paz, RN is Primary Nurse. sg 21:10 US Extremity Venous Unilateral Ltd In Process Unspecified. EDMS Administered Medications: 21:23 Not Given (Patient Refused): Colcrys 1.2 mg PO once sg 21:23 Not Given (Patient Refused): predniSONE 40 mg PO once sg Outcome: 21:43 Discharge ordered by . pkl 21:50 Patient left the ED. ll1 Signatures: Dispatcher [employer] EDMS Aldair Paz, RN RN Rory Alfredo MD MD pk Shena Redmond cf2 Génesis Mendoza RN RN ll1 Corrections: (The following items were deleted from the chart) 21:16 19:58 Allergies: Methylprednisolone; ll1 sg 21:23 21:20 predniSONE 40 mg PO sg sg 21:23 21:20 Colcrys 1.2 mg PO sg sg 21:25 21:22 BP 169 / 77; Pulse 91bpm; Resp 87bpm; Pulse Ox 100% RA; sg sg
--- NOTE | 2020-11-11 21:45 | EDPHYS ---
Physician Documentation [facility] Name: Kandace Whitt Age: 80 yrs Sex: Female : 1940 Arrival Date: 11/11/2020 Time: 19:46 Bed 7 Private MD: ED Physician Rory Alfredo HPI: 11/11 20:24 This 80 yrs old Female presents to ER via Wheelchair with complaints of Leg pkl Pain, ANKLE PAIN, KNEE SWELLING. 20:24 The patient presents with pain, that is acute, swelling. The complaints affect the left pkl knee and leg. Context: the patient can partially bear weight. Onset: The symptoms/episode began/occurred yesterday. Patient said she has H/O of gout. Think she has a gout flare-up. Historical: - Allergies: 19:58 BACLOFEN; ll1 19:58 Bextra; ll1 19:58 Cephalexin; ll1 19:58 Ciprofloxacin; ll1 19:58 CYCLOBENZAPRINE; ll1 19:58 diclofenac; ll1 19:58 Tramadol HCl; ll1 19:58 Vasotec; ll1 19:58 Vioxx; ll1 - PMHx: 19:58 Hypertension; Hypothyroidism; High Cholesterol; Gout; kidney CA; Myocardial infarction; ll1 diverticulosis; - PSHx: 19:58 ovarian tumor removed; Cholecystectomy; Appendectomy; Hernia repair; cataract repair; ll1 rotator cuff sx; - Immunization history:: Flu vaccine is up to date. - Social history:: Smoking status: Patient denies any tobacco usage or history of. ROS: 20:24 Eyes: Negative for injury, pain, redness, and discharge, ENT: Negative for injury, pkl pain, and discharge, Neck: Negative for injury, pain, and swelling, Cardiovascular: Negative for chest pain, palpitations, and edema, Respiratory: Negative for shortness of breath, cough, wheezing, and pleuritic chest pain, Abdomen/GI: Negative for abdominal pain, nausea, vomiting, diarrhea, and constipation, Back: Negative for injury and pain, : Negative for injury, bleeding, discharge, and swelling. 20:24 MS/extremity: Positive for pain, swelling, of the left knee and leg. 20:24 Skin: Negative for rash. 20:24 Neuro: Negative for altered mental status. Exam: 20:24 Head/Face: Normocephalic, atraumatic. Eyes: Pupils equal round and reactive to light, pkl extra-ocular motions intact. Lids and lashes normal. Conjunctiva and sclera are non-icteric and not injected. Cornea within normal limits. Periorbital areas with no swelling, redness, or edema. ENT: Nares patent. No nasal discharge, no septal abnormalities noted. Tympanic membranes are normal and external auditory canals are clear. Oropharynx with no redness, swelling, or masses, exudates, or evidence of obstruction, uvula midline. Mucous membranes moist. Neck: Trachea midline, no thyromegaly or masses palpated, and no cervical lymphadenopathy. Supple, full range of motion without nuchal rigidity, or vertebral point tenderness. No Meningismus. Chest/axilla: Normal chest wall appearance and motion. Nontender with no deformity. No lesions are appreciated. Cardiovascular: Regular rate and rhythm with a normal S1 and S2. No gallops, murmurs, or rubs. Normal PMI, no JVD. No pulse deficits. Respiratory: Lungs have equal breath sounds bilaterally, clear to auscultation and percussion. No rales, rhonchi or wheezes noted. No increased work of breathing, no retractions or nasal flaring. Abdomen/GI: Soft, non-tender, with normal bowel sounds. No distension or tympany. No guarding or rebound. No evidence of tenderness throughout. Back: No spinal tenderness. No costovertebral tenderness. Full range of motion. Skin: Warm, dry with normal turgor. Normal color with no rashes, no lesions, and no evidence of cellulitis. Neuro: Awake and alert, GCS 15, oriented to person, place, time, and situation. Cranial nerves II-XII grossly intact. Motor strength 5/5 in all extremities. Sensory grossly intact. Cerebellar exam normal. Normal gait. 20:24 Musculoskeletal/extremity: Extremities: grossly normal except: noted in the left knee and leg: pain, swelling. Vital Signs: 20:00 BP 177 / 82; Pulse 105; Resp 18; Temp 98.2; Pulse Ox 98% ; Weight 73.94 kg; Height 4 ll1 ft. 11 in. (149.86 cm); Pain 10/10; 21:22 BP 169 / 77; Pulse 91; Resp 17; Pulse Ox 100% on R/A; sg 20:00 Body Mass Index 32.92 (73.94 kg, 149.86 cm) ll1 MDM: 20:11 Patient medically screened. pk 21:40 Data reviewed: vital signs, nurses notes, lab test result(s), radiologic studies, pkl ultrasound. ED course: Patient feeling better. Wants to go home now. Advised to follow up with her PCP in 2 to 3 days. Patient understood instructions. 11/11 20:22 Order name: CBC with Diff [facility] 11/11 20:22 Order name: Chem 7; Complete Time: 21:38 [facility] 11/11 20:22 Order name: Sed Rate [facility] 11/11 20:22 Order name: D-Dimer; Complete Time: 21:38 [facility] 11/11 20:22 Order name: Uric Acid; Complete Time: 21:38 [facility] 11/11 21:23 Order name: Urine Dipstick--Ancillary (enter results) [facility] 11/11 20:22 Order name: US Extremity Venous Unilateral Ltd; Complete Time: 21:38 [facility] 11/11 21:23 Order name: Urine Dipstick-Ancillary (obtain specimen); Complete Time: 21:26 mw2 Administered Medications: 21:23 Not Given (Patient Refused): Colcrys 1.2 mg PO once sg 21:23 Not Given (Patient Refused): predniSONE 40 mg PO once sg Disposition: 11/11/20 21:43 Discharged to Home. Impression: Cellulitis left leg. Possible gout. - Condition is Stable. - Prescriptions for Clindamycin HCl 300 mg Oral Capsule - take 1 capsule by ORAL route every 6 hours for 7 days; 28 capsule. Prednisone 20 mg Oral Tablet - take 1 tablet by ORAL route once daily for 10 days; 10 tablet. - Medication Reconciliation Form, Thank You Letter, Antibiotic Education, Prescription Opioid Use form. - Follow up: Private Physician; When: 2 - 3 days; Reason: Re-evaluation by your physician. - Problem is new. - Symptoms have improved. Signatures: Dispatcher [employer] EDAldair Torres RN RN Rory Alfredo MD MD Jonathan Mtz 2 Génesis Mendoza RN RN ll1 Corrections: (The following items were deleted from the chart) 21:16 19:58 Allergies: Methylprednisolone; ll1 sg 21:50 21:43 11/11/2020 21:43 Discharged to Home. Impression: Cellulitis left leg. Possible ll1 gout. Condition is Stable. Forms are Medication Reconciliation Form, Thank You Letter, Antibiotic Education, Prescription Opioid Use. Follow up: Private Physician; When: 2 - 3 days; Reason: Re-evaluation by your physician. Problem is new. Symptoms have improved. pkl
[2020-11-11 21:47] LABS: Urine Blood TRACE (NEG); Urine Glucose NEGATIVE (NEG); Urine Protein NEGATIVE (NEG); Urine Specific Gravity 1.025 (1.005-1.030); Urine pH 5.5 (5.0-7.0)
[2020-11-11 21:55] VITALS: TEMP 98.2
[2020-11-11 21:56] VITALS: BP 169/77; O2SAT 100
== END 2020-11-11 21:50 | disposition home or self-care (01) ==
LOC: ER 19:43
DX: L03.116 Cellulitis of left lower limb (principal); I10 Essential (primary) hypertension; E03.9 Hypothyroidism, unspecified; E78.00 Pure hypercholesterolemia, unspecified; M10.9 Gout, unspecified; I25.2 Old myocardial infarction; Z85.528 Personal history of other malignant neoplasm of kidney
CPT/HCPCS: 36415; 80048; 81003; 84550; 85025; 85379; 85652; 93971; 99282; J7512